=== PATIENT | female | born 1965 | race African-American/Black ===

== ENCOUNTER 2023-02-10 11:46 | Outpatient (CLI) | payer SELFPAY ==
[2023-02-10 20:08] LABS: Sodium 139 mmol/L (137-145)
[2023-02-10 20:14] LABS: Anion Gap 5 mmol/L (8-16); Blood Urea Nitrogen 13 mg/dL (7-17); Carbon Dioxide 29 mmol/L (22-30); Chloride 105 mmol/L (98-107); Potassium 3.6 mmol/L (3.4-5.0)
[2023-02-10 20:15] LABS: Alanine Aminotransferase 27 U/L (6-35); Albumin Level 3.8 g/dL (3.5-5.1); Alkaline Phosphatase 67 U/L (38-126); Aspartate Amino Transferase 36 U/L (14-36); Bilirubin,Total 0.6 mg/dL (0.2-1.3); Cholesterol 257 mg/dL (0-200); Estimated Glomerular Filt Rate > 60; Glucose 84 mg/dL (65-110); HDL Direct 64 mg/dL; Triglycerides 108 mg/dL (<150)
[2023-02-10 20:21] LABS: LDL Cholesterol Direct 131 mg/dL
[2023-02-10 20:35] LABS: Free T4 Free Thyroxine Reflex 0.79 ng/dL (0.78-2.19)
[2023-02-10 21:21] LABS: Total Triiodothyronine (T3) 0.97 NG/ML (0.97-1.69)
== END 2023-02-10 11:47 | disposition home or self-care (01) ==
PROVIDERS: PCP Family Medicine; Visit Provider Family Medicine
DX: E89.0 Postprocedural hypothyroidism (principal); Z13.220 Encounter for screening for lipoid disorders; I10 Essential (primary) hypertension
CPT/HCPCS: 36415; 80053; 80061; 84439; 84443; 84480

== ENCOUNTER 2023-03-30 13:13 | Outpatient (CLI) | payer OTHER, SELFPAY ==
[2023-03-30 18:50] LABS: Parathyroid Intact 48.1 pg/mL (7.5-53.5)
[2023-03-30 19:28] LABS: Vitamin D 25 Hydroxy 31.4 ng/mL
[2023-03-30 19:42] LABS: Thyroid Stimulating Hormone Reflex 0.408 uIU/mL (0.465-4.68)
[2023-03-30 20:45] LABS: Free T4 Free Thyroxine Reflex 1.45 ng/dL (0.78-2.19)
[2023-03-30 21:48] LABS: Total Triiodothyronine (T3) 1.22 NG/ML (0.97-1.69)
[2023-04-01 15:21] LABS: Ionized Calcium 4.7 mg/dL (4.7-5.5)
[2023-04-02 17:48] LABS: Vitamin D 1,25 (OH)2 Total 30 pg/mL (18-72); Vitamin D2 1,25 (OH)2 <8 pg/mL; Vitamin D3 1,25 (OH)2 30 pg/mL
== END 2023-03-30 13:14 | disposition home or self-care (01) ==
LOC: ANHGOSHLAB 13:17
PROVIDERS: PCP Family Medicine; Visit Provider Family Medicine
DX: Z13.29 Encounter for screening for other suspected endocrine disorder (principal); E83.51 Hypocalcemia; E55.9 Vitamin D deficiency, unspecified
CPT/HCPCS: 36415; 82306; 82330; 82652; 83970; 84439; 84443; 84480